=== PATIENT | female | born 2000 | race Caucasian/White ===

== ENCOUNTER 2020-11-25 17:42 | Emergency (ER) | payer MEDICAID ==
[~2020-11-25] VITALS: Ht 160 cm; Wt 93.4 kg
--- NOTE | 2020-11-25 17:50 | NUR ---
Placed in room 5. Placed on laboratory monitor, blood pressure machine and pulse oximeter. To gown for exam. Side rails up.
[2020-11-25 17:52] VITALS: BP_SYST 161
--- NOTE | 2020-11-25 17:55 | NUR ---
PT RICARDOA REPORTING THAT SHE RAN OUT OF HER PSYCH MEDS 9 DAYS AGO AND FEARS THAT SHE MAY FEEL WORSE IF SHE CONTINUES NOT TO TAKE THEM. STATES SHE "FEELS WEIRD" SHE WAS UNABLE TO FIND A PSYCH CLINIC TO GO TO TODAY. SHE NORMALLY TAKES ABILIFY 10MG DAILY AND PROZAC 60MG DAILY. SHE DENIES SI/HI AT THIS TIME. DENIES PSYCHOSIS. HX OF DEPRESSION, ANXIETY AND ADHD. AAOX4, V/S STABLE
--- NOTE | 2020-11-25 18:01 | NUR ---
ER DR. EWING AT THE BEDSIDE EXAMINING PT.
--- NOTE | 2020-11-25 18:22 | NUR ---
Patient given written and verbal discharge instructions and verbalizes understanding. ER MD discussed with patient the results and treatment provided. Patient in stable condition. ID arm band removed. Rx of PROZAC AND ABILIFY given. Patient educated on pain management and to follow up with PMD. Pain Scale 0/10. Opportunity for questions provided and answered. Medication side effect fact sheet provided.
== END 2020-11-25 18:22 | disposition home or self-care (01) ==
LOC: SED 17:42
DX: Z76.0 Encounter for issue of repeat prescription (principal); F41.9 Anxiety disorder, unspecified
CPT/HCPCS: 99281